=== PATIENT | female | born 1980 | race Caucasian/White ===

== ENCOUNTER 2016-09-28 07:15 | Emergency (ER) | payer SELFPAY ==
[~2016-09-28] VITALS: Ht 165.1 cm; Wt 81.0 kg
[2016-09-28 07:21] VITALS: BP 142/90; PULSE 98; RESP 16; TEMP 98.1; O2SAT 97
[2016-09-28] MEDS ORDERED: OMEP20TA PO (07:40)
[2016-09-28] MEDS ORDERED: TRAZ100T4 PO (07:40)
--- NOTE | 2016-09-28 07:40 | PD ---
HPI Chief Complaint: Pain: Acute or Chronic Time Seen by Provider: 07:27 Travel History International Travel<30 days: No Contact w/Intl Traveler<30days: No Traveled to known affect area: No History of Present Illness HPI 36yo F with PMH of ectopic presents to the ED with c/o left calf pain since yesterday. Started gradually and now it is getting worst. Pain is worst with dorsiflexion of left foot. Pt feels it is more swollen as well. Pt denies any history of DVT, PE, trauma, recent traveling, chest pain, sob, n/v, abdominal pain, focal numbness or weakness. Pt did not take any pain medication at home. PFSH Past Medical History Hx Anticoagulant Therapy: No Diabetes: No ?: Unknown Social History Tobacco Use: No Allergies-Medications (Allergen,Severity, Reaction): Coded Allergies: Sulfa (Verified Allergy, Severe, 09/28/16) Reported Meds & Prescriptions Reported Meds & Active Scripts Active Ibuprofen 600 Mg Tab 600 Mg PO Q8HR PRN Reported Trazodone (Trazodone HCl) 100 Mg Tab 100 Mg PO HS Omeprazole 20 Mg Tab 20 Mg PO DAILY Review of Systems Except as stated in HPI: all other systems reviewed are Neg Physical Exam Narrative GENERAL: 36yo F not in distress. SKIN: Focused skin assessment warm/dry. HEAD: Atraumatic. Normocephalic. EYES: Pupils equal and round. No scleral icterus. No injection or drainage. ENT: No nasal bleeding or discharge. Mucous membranes pink and moist. NECK: Trachea midline. No JVD. CARDIOVASCULAR: Regular rate and rhythm. No murmur appreciated. RESPIRATORY: No accessory muscle use. Clear to auscultation. Breath sounds equal bilaterally. GASTROINTESTINAL: Abdomen soft, non-tender, nondistended. MUSCULOSKELETAL: LLE: +Calf ttp. +Worsening of left calf pain with dorsiflexion of left foot. No edema on bilateral lower ext. FROM in left knee and ankle. Sensation intact. DP 2+. NEUROLOGICAL: Awake and alert. No obvious cranial nerve deficits. Motor grossly within normal limits. Normal speech. PSYCHIATRIC: Appropriate mood and affect; insight and judgment normal. Data Data Last Documented VS Vital Signs Date Time Temp Pulse Resp B/P Pulse Ox O2 Delivery O2 Flow Rate FiO2 09/28/16 07:21 98.1 98 16 142/90 97 Orders Us Leg Venous Doppler (09/28/16 ) Ibuprofen (Motrin) (09/28/16 07:45) Basic Metabolic Panel (Bmp) (09/28/16 07:40) Magnesium (Mg) (09/28/16 07:40) Labs Laboratory Tests Test 09/28/16 08:18 Sodium Level 140 MEQ/L Potassium Level 3.9 MEQ/L Chloride Level 106 MEQ/L Carbon Dioxide Level 25.6 MEQ/L Anion Gap 8 MEQ/L Blood Urea Nitrogen 10 MG/DL Creatinine 0.83 MG/DL Estimat Glomerular Filtration 78 ML/MIN Rate Random Glucose 100 MG/DL Calcium Level 8.2 MG/DL Magnesium Level 2.2 MG/DL MDM Medical Decision Making Medical Screen Exam Complete: Yes Emergency Medical Condition: Yes Interpretation(s) Laboratory Tests Test 09/28/16 08:18 Sodium Level 140 MEQ/L (136-145) Potassium Level 3.9 MEQ/L (3.5-5.1) Chloride Level 106 MEQ/L (98-107) Carbon Dioxide Level 25.6 MEQ/L (21.0-32.0) Anion Gap 8 MEQ/L (5-15) Blood Urea Nitrogen 10 MG/DL (7-18) Creatinine 0.83 MG/DL (0.50-1.00) Estimat Glomerular Filtration 78 ML/MIN (>89) Rate Random Glucose 100 MG/DL (74-106) Calcium Level 8.2 MG/DL (8.5-10.1) Magnesium Level 2.2 MG/DL (1.5-2.5) Last Impressions Lower Extremity Ultrasound 09/28/16 0000 Signed Impressions: Service Date/Time: Wednesday, September 28, 2016 07:49 - CONCLUSION: No DVT in the left leg. Luis Fernando Almodovar MD Differential Diagnosis DVT vs. musculoskeletal pain vs. electrolyte abnormality Narrative Course 36yo F with left calf pain since yesterday. US showed no DVT in the left leg. BNP unremarkable with normal potassium, magnesium. Pt given ibuprofen which helped with the pain. She is requesting work note for today. Will have pt follow up with PMD as outpatient. Diagnosis Primary Impression: Left leg pain Patient Instructions: General Instructions Departure Forms: Tests/Procedures, Work Release Enter return to work date: Sep 29, 2016 Additional Instructions: Please follow up with your PMD in 3-7 days. Return to the ED if symptoms worsen. Med/Other Pt SpecificInfo: Prescription(s) given Scripts Ibuprofen 600 Mg Puf814 Mg PO Q8HR PRN (PAIN) #20 TAB Ref 0 Prov:Homa Goins DO 09/28/16 Disposition: 01 DISCHARGE HOME Condition: Stable Homa Goins DO Sep 28, 2016 07:40
[2016-09-28] MEDS ORDERED: IBUPROFEN 600 MG TAB PO ONE (07:45)
[2016-09-28 08:33] LABS: POTASSIUM 3.9 MEQ/L (3.5-5.1)
[2016-09-28 08:35] LABS: BICARBONATE 25.6 MEQ/L (21.0-32.0); MAGNESIUM 2.2 MG/DL (1.5-2.5)
--- NOTE | 2016-09-28 08:42 | RADHPO ---
EXAM DATE/TIME: 09/28/2016 07:49 [facility] COMPARISON: No previous studies available for comparison. INDICATIONS : Left calf pain. MEDICAL HISTORY : Ectopic . Polycystic ovary disease. SURGICAL HISTORY : Tonsillectomy. Right oopherectomy. ENCOUNTER: Initial ACUITY: 1 day PAIN SCORE: 7/10 LOCATION: Left leg. TECHNIQUE: Venous ultrasound of the leg was performed from the inguinal ligament to the proximal calf. Real-chang e, color Doppler and spectral tracing, compression and augmentation techniques were used. FINDINGS: There is normal compressibility of the deep venous system from the inguinal region to the proximal ca lf. No echogenic clot is seen in the lumen of the common femoral, femoral, popliteal, and posterior tibial veins. There is a normal response of the venous system to proximal and distal augmentation an d respiration. CONCLUSION: No DVT in the left leg. Luis Fernando Almodovar MD on September 28, 2016 at 8:40 Board Certified Radiologist. This report was verified electronically.
[2016-09-28] MEDS ORDERED: IBUP-232 PO (08:55)
== END 2016-09-28 09:24 | disposition home or self-care (01) ==
LOC: PHED 07:15
DX: M79.605 Pain in left leg (principal)
CPT/HCPCS: 80048; 83735; 93971